=== PATIENT | female | born 1935 | race Caucasian/White ===

== ENCOUNTER 2016-11-13 08:09 | Inpatient (IN) | payer BC, OTHER ==
[2016-10-30 13:16] VITALS: Ht 152.4 cm; Wt 56.8 kg
[2016-11-13] VITALS (10 sets, daily range): BP systolic 130–194; BP diastolic 56–86; PULSE 57–76; TEMP 36.4–36.8; O2SAT 91–100
[~2016-11-13] VITALS: Ht 152.4 cm; Wt 56.8 kg
[~2016-11-13 08:09] MED LIST: ASPI-435 PO; ATROPINE SULFATE 0.1 MG/ML 5ML SYR IV PRN; EpHEDrine SULFATE INJ 50 MG/ML AMP IV PRN; FENTANYL CITRATE INJ 50 MCG/1 ML 2 ML VIAL IV PRN; HYDROmorphone INJ 1 MG/ML SYR IV PRN; IBUP-1451 PO; LACTATED RINGER'S 1000ML 1,000 ML IV SCH; METO25TA56 PO; ONDANSETRON INJ 2 MG/ML 2 ML VIAL IV PRN; PRAV20TA PO
[2016-11-13] MEDS ORDERED: FENTANYL CITRATE INJ 50 MCG/1 ML 2 ML VIAL ONE ×2 (09:44→10:56)
[2016-11-13] MEDS ORDERED: MIDAZOLAM HCL 1 MG/ML 2ML VIAL ONE (09:45)
--- NOTE | 2016-11-13 09:49 | History & Physical Bridge Note ---
H&P Re-Evaluation Bridge Note: I have examined the patient, reviewed the History & Physical and in the interval since the performance of the History & Physical I have noted the following changes of clinical significance: No changes noted
--- NOTE | 2016-11-13 09:49 | History and Physical ---
History & Physical Date Nov 13, 2016. Chief Complaint Back and leg pain History of Present Illness The patient is a 81 year old female with complaints of Additional History Hepatic Disease: No Endocrine Disorder: No Kidney Disease: No Hypertension: Yes Heart Disease: No Bleeding Tendencies: No Infectious Diseases: No Allergies Coded Allergies: No Known Allergies (Unverified , 11/13/16) Home Medications Scheduled Aspirin (Aspirin 81), 1 TAB PO QAM Metoprolol Tartrate (Lopressor) (Lopressor), 25 MG PO BID Pravastatin (Pravachol ), 20 MG PO QAM Scheduled PRN Ibuprofen Tab (Motrin), 800 MG PO BID PRN for Pain Physical Examination Skin: warm/dry, no rash Eyes: normal inspection, EOMI, sclerae normal ENT: normal ENT inspection, pharynx normal Head: normocephalic, atraumatic Neck: supple, no adenopathy, trachea midline Respiratory/Chest: lungs clear, normal breath sounds, no respiratory distress Cardiovascular: regular rate, rhythm, no edema, no murmur Abdomen / GI: normal bowel sounds, non tender Back: normal inspection Extremities: normal inspection, normal range of motion Neurologic/Psych: no motor/sensory deficits, alert, normal reflexes, oriented x 3 Diagnosis Lumbar spinal stenosis with spondylolisthesis Plan of Treatment Lumbar decompression L3 4 L4 5 with fusion
[2016-11-13] MEDS ORDERED: BACITRACIN 50000 UNIT VIAL ONE (10:20)
[2016-11-13] MEDS ORDERED: SODIUM CHLORIDE 0.9% PF 50 ML VIAL ONE (10:20)
[2016-11-13] MEDS ORDERED: BUPIVACAINE/EPINEPHRINE 0.5% MPF 1:200,000 10 ML VIAL ONE ×2 (10:20)
[2016-11-13] MEDS: CEFAZOLIN 1000MG/55 ML D5W IV SCH (10:33)
[2016-11-13] MEDS ORDERED: HYDROmorphone INJ 2 MG/ML SYR/VIAL ONE (10:56)
[2016-11-13] MEDS ORDERED: PROPOFOL IV EMULSION 10 MG/ML 20 ML VIAL IV ONE (12:43)
[2016-11-13] MEDS ORDERED: EpHEDrine SULFATE 50MG/5ML SYR ONE (12:43)
[2016-11-13] MEDS ORDERED: ONDANSETRON INJ 2 MG/ML 2 ML VIAL ONE (12:43)
[2016-11-13] MEDS ORDERED: NEOSTIGMINE METHYLSULFATE 1 MG/ML 10ML VIAL ONE (12:43)
[2016-11-13] MEDS ORDERED: PHENYLEPHRINE 100MCG/ML 5ML SYR ONE (12:43)
[2016-11-13] MEDS ORDERED: GLYCOPYRROLATE INJ 0.2 MG/ML VIAL ONE (12:43)
[2016-11-13] MEDS ORDERED: DEXAMETHASONE SOD INJ 4 MG/ML VIAL ONE (12:43)
[2016-11-13] MEDS ORDERED: ROCURONIUM BROMIDE 10 MG/ML 5 ML VIAL ONE (12:43)
[2016-11-13] MEDS ORDERED: LIDOCAINE HCL 2% 2 ML VIAL (20MG/ML) ONE (12:43)
[2016-11-13] MEDS ORDERED: SODIUM CHLORIDE 0.9% 1000ML 1,000 ML IV SCH (12:44)
[2016-11-13] MEDS ORDERED: DO NOT ADMINISTER PNEUMOCOCCAL VACCINE PRN ×2 (12:45)
[2016-11-13] MEDS ORDERED: PROMETHAZINE HCL INJ 12.5 MG in SODIUM CHLORIDE 0.9% 50ML 50 ML IV PRN (12:45)
[2016-11-13] MEDS ORDERED: FAMOTIDINE 20 MG TAB PO PRN (12:45)
[2016-11-13] MEDS ORDERED: NALOXONE HCL 0.4 MG/1 ML VIAL/CARP IV PRN ×2 (12:45)
[2016-11-13] MEDS ORDERED: LORAZEPAM INJ 0.5 MG in SYRINGE 0.75 ML IV PRN (12:45)
[2016-11-13] MEDS ORDERED: SOD PHOSPHATE/SOD BIPHOSPHATE ENEMA 132 ML BTL PR PRN (12:45)
[2016-11-13] MEDS ORDERED: ACETAMINOPHEN IV 100 ML IV PRN (12:45)
[2016-11-13] MEDS ORDERED: METOCLOPRAMIDE HCL INJ 5 MG/ML 2 ML VIAL IV PRN (12:45)
[2016-11-13] MEDS ORDERED: BISACODYL 10 MG SUPP PR PRN (12:45)
[2016-11-13] MEDS ORDERED: DO NOT ADMINISTER FLU VACCINE PRN ×3 (12:45)
[2016-11-13] MEDS ORDERED: HYDROmorphone HCL 0.5MG/ML 50 ML CASSETTE IV PRN (12:45)
[2016-11-13] MEDS ORDERED: LORAZEPAM 0.5 MG TAB PO PRN (12:45)
[2016-11-13] MEDS ORDERED: ALUMINUM/MAGNESIUM SUSP 30 ML UDC PO PRN (12:45)
[2016-11-13] MEDS ORDERED: ACETAMINOPHEN 500 MG TAB PO PRN (12:45)
[2016-11-13] MEDS ORDERED: MAGNESIUM HYDROXIDE SUSP 30 ML UDC PO PRN (12:45)
[2016-11-13] MEDS ORDERED: hydrOXYzine HCL 25 MG TAB PO PRN (12:45)
[2016-11-13] MEDS ORDERED: FLOSEAL HEMOSTATIC MATRIX 10ML TOP ONE (12:47)
--- NOTE | 2016-11-13 12:47 | DIAGNOSTIC IMAGING REPORT ---
LUMBAR SPINE 2 OR 3 VIEW CLINICAL HISTORY: L3-5 DECOMPRESSION/FUSION/INTERBODY fusion TECHNIQUE: Image intensifier COMPARISON STUDY: None FINDINGS: Image intensifier utilized for a lumbar laminectomy and fusion IMPRESSION: Lumbar laminectomy and fusion The above report was generated using voice recognition software. It may contain grammatical, syntax or spelling errors. Electronically signed by: Anurag Gilliam M.D. 11/13/2016 12:46 PM Dictated Date/Time: 11/13/2016 12:45 PM
--- NOTE | 2016-11-13 12:55 | [facility] Operative Report ---
Operative Report Operative Date Nov 13, 2016. Pre-Operative Diagnosis Lumbar spinal stenosis with spondylolisthesis Post-Operative Diagnosis same as pre-operative Procedure(s) Performed #1 lumbar decompression L2 3 L3 4 4 5. 2 posterior spinal fusion L3 4 for 5. #3 this posterior segmental instrumentation L3 4 L4 5. #4 interbody fusion L4 5. #5 placement peek cage 9 x 22 mm at L4 5. 6 placement of locally harvested morcellized autograft posterior gutters. #7 placement infuse collagen sponge by mask graft in the posterior lateral gutters Nimco bone graft in the interbody space. Surgeon Dr. Pedro Martinez Radiology Scheduler Surgeon(s) Brielle Root PA-C Estimated Blood Loss 125ML Findings Severe spinal stenosis with spondylolisthesis Specimens none per surgeon Description of Procedure He shouldn't was met with preoperatively case discussed all questions are dressed with the patient was taken back to the operative suite and after undergoing successful general intubation placed in a prone position on top of the Avery frame. All bony promises well-padded eyes inspected to ensure no external pressure placed upon them. This point the lumbar spines prepped draped nostril fashion. Sharp dissection with the assistance of Bovie cautery was performed onto an exposing the lamina and transverse processes of L3 L4 L5 bilaterally. Obvious anterolisthesis facet hypertrophy identified. A complete laminectomy of L4 and L3 was performed addressing severe lateral recess as well as foraminal stenosis. We did also perform partial laminectomy of L2 to address medial facetectomies lateral recess stenosis at L2-3. At this complete pedicle screws were placed in L3 L4-L5 bilaterally with the assistance of fluoroscopy into a transforaminal approach on the right a complete discectomy of L4 5 was performed and an plates curetted to subcortical bleeding bone and a 9 x 22 mm peek cage filled with Nimco bone grafting Position. Purposes aleksandra appropriate placed compressed and locked and final position bilaterally. Transverse processes of L3-L4 5 burred to subcortical bleeding bone. Infuse collagen sponge mass Local harvested morcellized autograft was placed and posterior gutters. 15 round JAVY drain inserted. Incision closed with 1 Vicryl fascia 2-0 Vicryl subcutaneous cutaneously 4-0 Monocryl for final skin closure. Please note Brielle Doherty present throughout the entire procedure involved in patient positioning complex portions of the procedure and final skin closure. I attest to the content of the Intraoperative Record and any orders documented therein. Any exceptions are noted below.
[2016-11-13] MEDS ORDERED: HYDROmorphone HCL 0.5MG/ML 50 ML CASSETTE ONE (13:05)
[2016-11-13] MEDS ORDERED: KETOROLAC TROMETHAMINE 30 MG/ML VIAL ONE (13:05)
[2016-11-13] MEDS ORDERED: ESMOLOL HCL 10 MG/ML 10 ML VIAL ONE (13:05)
--- NOTE | 2016-11-13 13:36 | Anesthesiology Progress Note ---
Anesthesia Post Op Note Date & Time Nov 13, 2016 at 13:36 Vital Signs Pain Intensity: 0 Vital Signs Past 12 Hours Date Time Temp Pulse Resp B/P (MAP) Pulse Ox O2 Delivery O2 Flow Rate FiO2 11/13/16 13:27 67 19 11/13/16 13:27 67 19 98 11/13/16 13:26 169/56 11/13/16 13:22 73 11 100 11/13/16 13:22 73 11 11/13/16 13:21 171/62 11/13/16 13:17 72 22 11/13/16 13:17 72 22 100 11/13/16 13:16 73 16 164/62 100 11/13/16 13:16 73 16 11/13/16 13:11 72 17 153/66 100 11/13/16 13:11 74 17 11/13/16 13:06 80 16 11/13/16 13:06 80 16 156/64 100 11/13/16 13:01 82 15 145/63 99 11/13/16 13:01 36.6 82 14 145/63 (94) 99 Mask 10 11/13/16 13:01 81 15 11/13/16 08:48 36.7 59 18 194/86 97 Room Air Notes Mental Status: alert / awake / arousable, participated in evaluation Pt Amnestic to Procedure: Yes Nausea / Vomiting: adequately controlled Pain: adequately controlled Airway Patency, RR, SpO2: stable & adequate BP & HR: stable & adequate Hydration State: stable & adequate Anesthetic Complications: no major complications apparent
[2016-11-13] MEDS: SODIUM CHLORIDE 0.9% 1000ML 1,000 ML IV SCH ×2 (14:51→20:42)
[2016-11-13 17:07] LABS: BASO % 0.1 %; BASO ABS # 0.02 K/uL (0-0.2); COMPLETE YES; EOS % 0.1 %; HEMATOCRIT 35.6 % (37-47); IG% 0.3 %; LYMPH % 6.1 %; LYMPH ABS # 0.92 K/uL (1.2-3.4); MEAN CELL VOLUME 94.9 fL (80-100); MEAN CORPUSCULAR HEMOGLOBIN 31.2 pg (25-34); MEAN CORPUSCULAR HGB CONC 32.9 g/dl (32-36); MEAN PLATELET VOLUME 10.6 fL (7.4-10.4); MONO % 0.7 %; NEUT % 92.7 %; PLATELET COUNT 181 K/uL (130-400); RED BLOOD COUNT 3.75 M/uL (4.2-5.4); WHITE BLOOD COUNT 15.18 K/uL (4.8-10.8)
[2016-11-13 17:26] LABS: BUN/CREATININE RATIO 24.6 (10-20); CALCIUM 8.3 mg/dl (8.5-10.1); CREATININE 0.68 mg/dl (0.60-1.20); MAGNESIUM 1.9 mg/dl (1.8-2.4); POTASSIUM 3.4 mmol/L (3.5-5.1)
[2016-11-13 17:29] LABS: ALB/GLOB RATIO 1.2 (0.9-2)
[2016-11-13] MEDS: CEFAZOLIN IV 1,000 MG in DEXTROSE 5% 50ML 50 ML IV SCH (18:30)
--- NOTE | 2016-11-13 19:12 | INTERNAL MEDICINE CONSULTATION ---
DATE OF CONSULTATION: 11/13/2016 REASON FOR CONSULTATION: Medical co-care. HISTORY OF PRESENT ILLNESS: The patient is an 81-year-old female with a past medical history of degenerative joint disease. The patient complained of lower back pain for a long period of time, was diagnosed with lumbar spinal stenosis with spondylitis, failed conservative management as an outpatient and came for admission to have an elective lumbar decompression L3-L4 and L4-L5 fusion.
--- NOTE | 2016-11-13 19:23 | INTERNAL MEDICINE CONSULTATION ---
DATE OF CONSULTATION: 11/13/2016 CONSULT REQUESTED BY: Dr. Martinez for medical care. HISTORY OF PRESENT ILLNESS: The patient is an 81-year-old female with a past medical history of hypertension and dyslipidemia. The patient had been complaining of lower back pain, diagnosed with lumbar spinal stenosis with spondylolisthesis. Failed outpatient conservative management and presented to the hospital for elective lumbar decompression L3-L5 with fusion. PAST MEDICAL HISTORY: Hypertension, dyslipidemia, spinal stenosis, history of aortic stenosis, status post valvular replacement in 07/2015 with bioprosthetic valve. REVIEW OF SYSTEMS: Denies any headache, double vision, blurry vision. Denies any chest pain or palpitation. Denies any cough, wheezing, shortness of breath. Denies any diarrhea or blood in stool. Denies any burning sensation in the urine or blood. Denies any focal weakness, tingling or numbness. Rest of the review of system is negative. SOCIAL HISTORY: No smoking or drinking. Lives with her daughter and her son-in-law. FAMILY HISTORY: The patient denies any family history of diabetes or heart disease. HOME MEDICATIONS: The patient takes aspirin, metoprolol, pravastatin and ibuprofen p.r.n. for pain. ALLERGIES: No known drug allergy. PHYSICAL EXAMINATION: GENERAL: The patient is average built, not in acute distress. VITAL SIGNS: Temperature 36.5, heart rate is 67, blood pressure 165/67. HEENT: No jaundice, no pallor with mucous membranes. NECK: Supple. HEART: S1, S2 normal. No gallop, rub or murmur. LUNGS: Clear to auscultation bilaterally. Normal chest wall expansion. ABDOMEN: Soft, nontender, nondistended. NEUROLOGIC: Awake, alert, oriented to time, place and person. Moves all extremities. Sensation intact. Cranial nerves II-XII appear to be intact. PSYCHIATRIC: Appropriate thought process and affect. EXTREMITIES: No edema, clubbing or cyanosis. ASSESSMENT: 1. Hypertension. 2. Dyslipidemia. 3. Spinal stenosis, status post lumbar decompression L2-L5, posterior spinal fusion L3, L4 and L5. Please refer to operative report for more details. 4. Aortic stenosis, status post bioprosthetic valve replacement. PLAN: 1. DVT prophylaxis and PT/OT and pain management will be up to primary orthopedic team. 2. Obtain CMP and CBC as baseline for the patient's most recent labs were in September and were within normal limits. 3. Continue IV fluid hydration. 4. Continue supportive care. 5. Pain management. 6. Continue metoprolol and pravastatin. We will continue to follow up the patient, review labs and order. Thank you for giving us the opportunity of sharing in the care of Mrs. Martine Timmons.
[2016-11-13] MEDS: DOCUSATE SODIUM/SENNA 50/8.6MG TAB PO SCH (20:41)
[2016-11-13] MEDS: DEXAMETHASONE INJ 6 MG in SYRINGE 0 ML IV SCH (20:41)
[2016-11-13] MEDS: METOPROLOL TARTRATE 25 MG TAB PO SCH (20:41)
[2016-11-14] VITALS (7 sets, daily range): BP systolic 130–191; BP diastolic 54–69; PULSE 55–70; TEMP 36.4–36.9; O2SAT 92–98
[2016-11-14] MEDS: SODIUM CHLORIDE 0.9% 1000ML 1,000 ML IV SCH (03:32)
[2016-11-14] MEDS: CEFAZOLIN IV 1,000 MG in DEXTROSE 5% 50ML 50 ML IV SCH (03:32)
[2016-11-14] MEDS: DEXAMETHASONE INJ 6 MG in SYRINGE 0 ML IV SCH ×2 (05:28→13:21)
[2016-11-14 05:45] LABS: BASO % 0.1 %; BASO ABS # 0.01 K/uL (0-0.2); COMPLETE YES; HEMATOCRIT 30.8 % (37-47); IG% 0.2 %; LYMPH % 9.2 %; LYMPH ABS # 1.17 K/uL (1.2-3.4); MEAN CELL VOLUME 94.5 fL (80-100); MEAN CORPUSCULAR HEMOGLOBIN 31.6 pg (25-34); MEAN CORPUSCULAR HGB CONC 33.4 g/dl (32-36); MEAN PLATELET VOLUME 10.9 fL (7.4-10.4); MONO % 3.6 %; NEUT % 86.9 %; PLATELET COUNT 186 K/uL (130-400); RED BLOOD COUNT 3.26 M/uL (4.2-5.4); WHITE BLOOD COUNT 12.71 K/uL (4.8-10.8)
[2016-11-14] MEDS ORDERED: DC PCA SCH (06:00)
[2016-11-14] MEDS ORDERED: HYDROmorphone INJ 0.5 MG/0.5 ML SYR IV PRN (06:00)
[2016-11-14] MEDS ORDERED: HYDROmorphone INJ 1 MG/ML SYR IV PRN (06:00)
[2016-11-14] MEDS ORDERED: NURSING DECISION MEDICATION ORDER SCH (06:30)
[2016-11-14 06:38] LABS: BUN/CREATININE RATIO 21.6 (10-20); CALCIUM 7.9 mg/dl (8.5-10.1); CREATININE 0.72 mg/dl (0.60-1.20); POTASSIUM 4.5 mmol/L (3.5-5.1)
[2016-11-14] MEDS: PRAVASTATIN SOD 20 MG TAB PO SCH (08:07)
[2016-11-14] MEDS: ASPIRIN 81 MG ECTAB PO SCH (08:08)
[2016-11-14] MEDS: METOPROLOL TARTRATE 25 MG TAB PO SCH ×2 (08:08→21:04)
[2016-11-14] MEDS ORDERED: RXC5 PO (09:00)
--- NOTE | 2016-11-14 09:00 | Discharge Instructions ---
Discharge Instructions Date of Service Nov 14, 2016. Admission Reason for Admission: Spinal Stenosis Discharge Discharge Diagnosis / Problem: lumbar stenosis Discharge Goals Goal(s): Improve function Activity Recommendations Activity Limitations: per Instructions/Follow-up section . Instructions / Follow-Up Instructions / Follow-Up ACTIVITY RECOMMENDATIONS: SELF CARE INSTRUCTIONS AFTER THORACIC/LUMBAR FUSIONS 1. You may walk to your tolerance. It is good exercise for your legs and back. Expect some back and intermittent leg aches and pains. 2. You may perform "counter-top" level activities (make a sandwich, edvin with a project, etc.). 3. No bending or lifting of more than 10 pounds or back twisting of any nature (roll like a log when turning in bed). 4. You may ride in a car for 20-30 minutes at a time. No driving until after your first visit with your doctor. 5. Frequent changes of position and restricting sitting to 30 minutes at a time will help limit the amount of back spasms and stiffness you may experience. 6. You may discontinue the use of ambulatory aids (cane, crutches, etc.) once your strength and confidence allow. 7. You may wood floor refinisher the shower and let water strike your incision when you arrive home at least once daily. Do not take a tub bath, sit in a hot tub or go into a swimming pool until after your first recheck in the office. SPECIAL CARE INSTRUCTIONS: VERY IMPORTANT TO READ AND REVIEW A. Your surgical incision has been closed with a cosmetic suture under the skin that will dissolve in about 6 weeks. In 14 days, you can use a pair of clean scissors and cut the suture that is left outside of the skin at the ends of your incision. 1. The small skin tapes can be removed 7 days after surgery if they have not fallen off by that point. 2. You may keep the wound open to air as much as possible to promote healing after post-op day number 5 unless told otherwise by your doctor. 3. If you think the wound looks like it is becoming infected (redness or worsening drainage) and/or you are experiencing fever, chill or worsening back pain and muscle spasms, contact the office so that we may evaluate you as soon as possible. B. Complications are uncommon, but please contact us if you have any signs or symptoms of: 1. wound infection (fever higher than 102.5 degrees F, redness, separation of wound, drainage, or increasing pain from the incision) 2. blood clots in legs (pain, swelling, redness and warmth in legs) 3. urinary tract infection (fever higher than 102.5 degrees F, burning upon urination or increased frequency of urination) 4. nerve problems (inability to walk on your toes or heels, numbness, loss of bowel or bladder control) 5. any other symptoms that concern you C. Please call the office at if you have any concerns or questions about your operation or recovery. D. No smoking! Smoking drastically decreases the chance of a solid fusion. E. Do not take any anti-inflammatory medications (Indocin, Advil, Motrin, Aspirin, Naprosyn, etc.) as these may inhibit the chance of a solid fusion. Tylenol is okay to take for pain. MANAGING PAIN AFTER SPINAL SURGERY 1. Narcotic medication is intended for short-term use and will be provided for surgical pain. Surgical pain usually lasts for a period of 4-6 weeks. Narcotic medication includes Percocet, Vicodin, Darvocet, Tylenol #3 or Lortab. 2. Longer-term pain is more appropriately treated with non-narcotic medication such as Tylenol ES. 3. Muscle spasm is not appropriately treated with narcotics. Muscle relaxers such as Soma, Flexeril or Skelaxin can be used along with Tylenol ES. 4. Remember that we all live with some "aches and pains". This is not unusual or uncommon after an injury or as we get older. a. Back pain is expected and may include muscle spasms for 4 to 6 weeks after surgery. The pain should gradually improve. If the pain worsens for no apparent reason, please contact the office. b. Intermittent leg pain may also be experienced and should not be concerned about unless it worsens for no apparent reason. If so, please contact the office. 5. We will provide appropriate medication within the normal guidelines of their prescribed use. We will also be very cautious and aware of potential abuse and extended duration of patients' medication needs. a. Pain medications are for your comfort and to assist with sleep and rest so that the tissue can heal. They are not provided in order to return to normal activity and should not be used through the day. To do so or worsening pain at night can result from ongoing tissue damage and development of tolerance to the prescribed medicine. 6. Please allow 2-3 days to process refills. Prescriptions will not be mailed but must be picked up at the office. FOLLOW UP VISIT: Keep your scheduled follow-up appointment. Any questions, please call the office at . Current Hospital Diet Patient's current hospital diet: Regular Diet Discharge Diet Recommended Diet: Regular Diet Procedures Procedures Performed: #1 lumbar decompression L2 3 L3 4 4 5. 2 posterior spinal fusion L3 4 for 5. #3 this posterior segmental instrumentation L3 4 L4 5. #4 interbody fusion L4 5. #5 placement peek cage 9 x 22 mm at L4 5. 6 placement of locally harvested morcellized autograft posterior gutters. #7 placement infuse collagen sponge by mask graft in the posterior lateral gutters Nimco bone graft in the interbody space. Pending Studies Studies pending at discharge: no Medical Emergencies . Who to Call and When: Medical Emergencies: If at any time you feel your situation is an emergency, please call 911 immediately. . Non-Emergent Contact Non-Emergency issues call your: Primary Care Provider . "Provider Documentation" section prepared by Pedro Martinez. . VTE Core Measure Inpt VTE Proph given/why not?: Hector Batres, MICHELL's
--- NOTE | 2016-11-14 10:16 | Anesthesiology Progress Note ---
Anesthesia Post Op Note Date & Time Nov 14, 2016 at 10:15 Vital Signs Pain Intensity: 0.0 Vital Signs Past 12 Hours Date Time Temp Pulse Resp B/P (MAP) Pulse Ox O2 Delivery O2 Flow Rate FiO2 11/14/16 07:28 36.9 59 16 138/68 (91) 92 11/14/16 07:10 Room Air 11/14/16 03:16 36.4 64 14 145/68 (93) 92 Room Air 11/13/16 22:53 36.5 57 14 145/62 (89) 95 Room Air Notes Mental Status: alert / awake / arousable, participated in evaluation Pt Amnestic to Procedure: Yes Nausea / Vomiting: adequately controlled Pain: adequately controlled Airway Patency, RR, SpO2: stable & adequate BP & HR: stable & adequate Hydration State: stable & adequate Anesthetic Complications: no major complications apparent
[2016-11-14] MEDS: OXYCODONE HCL IR 5 MG TAB (IMMEDIATE RELEASE) PO PRN ×3 (10:30→22:13)
--- NOTE | 2016-11-14 12:55 | Hospitalist Progress Note ---
Hospitalist Progress Note Date of Service Nov 14, 2016. Subjective Pt evaluation today including: conversation w/ patient, physical exam, chart review, lab review, review of inpatient medication list Pain: Well controlled PO Intake: Tolerating PO diet Voiding: buckner catheter in place Patient reports feeling well. She denies any back pain. She states she is eating well without any difficulties. Buckner catheter is still in place, but the patient states that this is supposed to be removed today. She states that she is passing gas but has not had a bowel movement yet. The patient denies fevers, chills, sweats, chest pain, palpitations, claudication, cough, wheezing , shortness of breath, nausea, vomiting, abdominal pain, dysuria, hematuria, urinary retention, paralysis, weakness, numbness and tingling. Additional Comments: See HPI for pertinent positives and negatives. All other systems reviewed and negative. Objective Vital Signs Date Time Temp Pulse Resp B/P (MAP) Pulse Ox O2 Delivery O2 Flow Rate FiO2 11/14/16 10:51 36.7 56 16 151/54 (86) 95 Room Air 11/14/16 07:28 36.9 59 16 138/68 (91) 92 11/14/16 07:10 Room Air 11/14/16 03:16 36.4 64 14 145/68 (93) 92 Room Air 11/13/16 22:53 36.5 57 14 145/62 (89) 95 Room Air 11/13/16 20:40 69 135/64 (87) 11/13/16 19:26 36.7 76 18 130/62 (84) 92 Room Air 11/13/16 19:00 Room Air 11/13/16 17:35 36.8 64 17 155/56 (89) 91 Room Air 11/13/16 16:34 36.8 69 17 157/68 (97) 99 Room Air 11/13/16 15:37 36.8 64 18 166/67 (100) 99 Nasal Cannula 4.0 11/13/16 15:03 36.8 65 18 162/61 (94) 98 Nasal Cannula 4.0 11/13/16 14:32 62 16 167/65 (99) 100 Nasal Cannula 4.0 11/13/16 14:00 100 Nasal Cannula 4.0 11/13/16 14:00 100 Nasal Cannula 4.0 11/13/16 14:00 36.4 64 16 166/72 (103) 100 Nasal Cannula 4.0 11/13/16 13:33 36.5 63 16 165/67 100 Nasal Cannula 4 11/13/16 13:27 67 19 11/13/16 13:27 67 19 98 11/13/16 13:26 169/56 11/13/16 13:22 73 11 100 11/13/16 13:22 73 11 11/13/16 13:21 171/62 11/13/16 13:17 72 22 11/13/16 13:17 72 22 100 11/13/16 13:16 73 16 164/62 100 11/13/16 13:16 73 16 11/13/16 13:11 72 17 153/66 100 11/13/16 13:11 74 17 11/13/16 13:06 80 16 11/13/16 13:06 80 16 156/64 100 11/13/16 13:01 82 15 145/63 99 11/13/16 13:01 36.6 82 14 145/63 (94) 99 Mask 10 11/13/16 13:01 81 15 Physical Exam Notes: General appearance: Well-developed, well-nourished, no apparent distress Head: Normocephalic, atraumatic Eyes: Normal inspection, PERRL, EOMI ENT: Normal ENT inspection, hearing grossly normal, pharynx normal Neck: Supple, no JVD, trachea midline Respiratory/Chest: Lungs clear to auscultation, normal breath sounds, no respiratory distress Cardiovascular: +Systolic murmur. Regular rate & rhythm, no gallop Abdomen/GI: Normal bowel sounds, non-tender, soft Extremities/Musculoskeletal: Normal inspection, no calf tenderness, no pedal edema Neurological/Psych: Alert, normal mood/affect, oriented x 3 Skin: Normal color, warm/dry, no rash Laboratory Results Last 24 Hours Test 11/13/16 17:00 11/14/16 05:16 White Blood Count 15.18 K/uL 12.71 K/uL Red Blood Count 3.75 M/uL 3.26 M/uL Hemoglobin 11.7 g/dL 10.3 g/dL Hematocrit 35.6 % 30.8 % Mean Corpuscular Volume 94.9 fL 94.5 fL Mean Corpuscular Hemoglobin 31.2 pg 31.6 pg Mean Corpuscular Hemoglobin Concent 32.9 g/dl 33.4 g/dl Platelet Count 181 K/uL 186 K/uL Mean Platelet Volume 10.6 fL 10.9 fL Neutrophils (%) (Auto) 92.7 % 86.9 % Lymphocytes (%) (Auto) 6.1 % 9.2 % Monocytes (%) (Auto) 0.7 % 3.6 % Eosinophils (%) (Auto) 0.1 % 0.0 % Basophils (%) (Auto) 0.1 % 0.1 % Neutrophils # (Auto) 14.08 K/uL 11.05 K/uL Lymphocytes # (Auto) 0.92 K/uL 1.17 K/uL Monocytes # (Auto) 0.11 K/uL 0.46 K/uL Eosinophils # (Auto) 0.01 K/uL 0.00 K/uL Basophils # (Auto) 0.02 K/uL 0.01 K/uL RDW Standard Deviation 51.1 fL 50.1 fL RDW Coefficient of Variation 14.7 % 14.6 % Immature Granulocyte % (Auto) 0.3 % 0.2 % Immature Granulocyte # (Auto) 0.04 K/uL 0.02 K/uL Sodium Level 144 mmol/L 144 mmol/L Potassium Level 3.4 mmol/L 4.5 mmol/L Chloride Level 112 mmol/L 114 mmol/L Carbon Dioxide Level 26 mmol/L 25 mmol/L Anion Gap 6.0 mmol/L 5.0 mmol/L Blood Urea Nitrogen 17 mg/dl 16 mg/dl Creatinine 0.68 mg/dl 0.72 mg/dl Est Creatinine Clear Calc Drug Dose 50.4 ml/min 47.6 ml/min Estimated GFR () 94.4 90.4 Estimated GFR (Non- 81.5 78.0 BUN/Creatinine Ratio 24.6 21.6 Random Glucose 116 mg/dl 147 mg/dl Calcium Level 8.3 mg/dl 7.9 mg/dl Magnesium Level 1.9 mg/dl Total Bilirubin 0.4 mg/dl Aspartate Amino Transf (AST/SGOT) 29 U/L Alanine Aminotransferase (ALT/SGPT) 30 U/L Alkaline Phosphatase 68 U/L Total Protein 6.2 gm/dl Albumin 3.4 gm/dl Globulin 2.8 gm/dl Albumin/Globulin Ratio 1.2 Assessment and Plan 81 y/o female with a history of HTN, HLD and h/o aortic stenosis s/p aortic bioprosthetic valve replacement in July 2015 who presents s/p lumbar decompression and fusion with Dr. Martinez on 11/13 for medical management. -Pain management, DVT prophylaxis, and PT/OT as per primary team -POD #1 -Leukocytosis improving -Hemoglobin stable HTN--stable -Continue Lopressor 25 mg PO BID with hold parameters. Hold if HR less than 60 or SBP less than 100 -May cover with hydralazine 10 mg IV q6h prn SBP >180 HLD -Continue pravastatin 20 mg PO qd H/o aortic stenosis s/p aortic bioprosthetic valve replacement July 2015 -Continue ASA 81 mg PO qd Pt. is stable from a medical standpoint, we will sign off. Clear for discharge as per primary team. 3. Continue IV fluid hydration. 4. Continue supportive care. 5. Pain management. 6. Continue metoprolol and pravastatin.
[2016-11-14] MEDS ORDERED: HydrALAZINE HCL 20 MG/ML VIAL IV. PRN (13:00)
--- NOTE | 2016-11-14 15:01 | Progress Note ---
Progress Note Date of Service Nov 14, 2016. Progress Note Patient doing well. Has improvement of her leg pain. Back pain is well- controlled. Vital signs are stable. Neurologically she demonstrates good strength testing bilateral x-rays. Assessment status post lumbar decompression fusion. Planned this time we'll initiate physical therapy advance her bowel or joint anticipate possible DC home in the next few days.
[2016-11-14] MEDS: DOCUSATE SODIUM/SENNA 50/8.6MG TAB PO SCH (21:04)
[2016-11-15] MEDS: POLYETHYLENE (MIRALAX) 17 GM PACK PO SCH ×4 (05:38→23:44)
[2016-11-15 07:15] VITALS: BP 130/57; PULSE 63; TEMP 36.5; O2SAT 94
[2016-11-15] MEDS: PRAVASTATIN SOD 20 MG TAB PO SCH (08:27)
[2016-11-15] MEDS: ASPIRIN 81 MG ECTAB PO SCH (08:27)
[2016-11-15] MEDS: METOPROLOL TARTRATE 25 MG TAB PO SCH ×2 (09:12→21:42)
[2016-11-15 12:58] VITALS: BP 164/72; TEMP 36.3; O2SAT 93
--- NOTE | 2016-11-15 13:14 | Progress Note ---
Progress Note Date of Service Nov 15, 2016. Progress Note Patient noted a headache last evening this morning. This is combined with some posterior neck pain. Leg pain markedly improved. Leg halls well. I'll signs are stable JAVY drain still squatted significant. Logically she has good strength testing is comfortable at this time lying in bed. Assessment status post lumbar depression fusion replant this time unconcerned she developed a CSF leak. We will discontinue the drain maintain bed rest 24 hours and reassess her. I did explain the patient that if the leak fails to seal we made require an exploration of the incision. She understands agrees.
[2016-11-15 15:17] VITALS: BP 138/62; PULSE 65; TEMP 37; O2SAT 94
[2016-11-15 19:39] VITALS: BP 156/71; PULSE 72; O2SAT 96
[2016-11-15 21:41] VITALS: BP 152/67; PULSE 73; O2SAT 92
[2016-11-15] MEDS: DOCUSATE SODIUM/SENNA 50/8.6MG TAB PO SCH (21:43)
[2016-11-15 22:45] VITALS: BP 146/72; PULSE 69; TEMP 36.4; O2SAT 91
[2016-11-15] MEDS: OXYCODONE HCL IR 5 MG TAB (IMMEDIATE RELEASE) PO PRN (23:45)
[2016-11-16] VITALS (7 sets, daily range): BP systolic 139–192; BP diastolic 61–89; PULSE 70–80; TEMP 36.8–37.7; O2SAT 91–94
[2016-11-16] MEDS: POLYETHYLENE (MIRALAX) 17 GM PACK PO SCH ×3 (05:38→18:00)
[2016-11-16] MEDS: OXYCODONE HCL IR 5 MG TAB (IMMEDIATE RELEASE) PO PRN ×2 (07:51→18:42)
[2016-11-16] MEDS: PRAVASTATIN SOD 20 MG TAB PO SCH (07:52)
[2016-11-16] MEDS: METOPROLOL TARTRATE 25 MG TAB PO SCH ×2 (07:52→20:54)
[2016-11-16] MEDS: ASPIRIN 81 MG ECTAB PO SCH (10:31)
--- NOTE | 2016-11-16 17:22 | Progress Note ---
Progress Note Date of Service Nov 16, 2016. Progress Note Patient's pain is well-controlled. She denies any leg pain. Denies any nausea vomiting or headaches. She is having positive flatus but no bowel movement as of yet. The remaining without difficulty. Vital signs are stable. On exam she has good strength testing appears comfortable. Assessment status post lumbar decompression fusion. Plan at this time we'll reassess her in the a.m. at which point hopefully begin transitions from bed to chair. If she progresses nicely Saturday we will encourage and increase activity on Saturday. Stands and agrees.
[2016-11-16] MEDS ORDERED: NURSING DECISION MEDICATION ORDER SCH (18:45)
[2016-11-16] MEDS: DOCUSATE SODIUM/SENNA 50/8.6MG TAB PO SCH (20:54)
[2016-11-17 00:11] VITALS: BP 127/61; PULSE 78; TEMP 37.4; O2SAT 91
[2016-11-17] MEDS: ONDANSETRON INJ 2 MG/ML 2 ML VIAL IV PRN ×2 (02:32→13:09)
[2016-11-17] MEDS: OXYCODONE HCL IR 5 MG TAB (IMMEDIATE RELEASE) PO PRN ×2 (02:56→20:33)
[2016-11-17 08:00] VITALS: BP 147/67; PULSE 74; TEMP 37.4; O2SAT 92
[2016-11-17] MEDS: ASPIRIN 81 MG ECTAB PO SCH (08:51)
[2016-11-17] MEDS: METOPROLOL TARTRATE 25 MG TAB PO SCH ×2 (08:51→20:34)
[2016-11-17] MEDS: PRAVASTATIN SOD 20 MG TAB PO SCH (08:51)
--- NOTE | 2016-11-17 09:53 | Progress Note ---
Progress Note Date of Service Nov 17, 2016. Progress Note Patient's feeling very good today. Denies any headaches. Bowels working well. On physical exam vital signs are stable she has good strength testing. Assessment status post lumbar depression fusion replant this time we will initiate bed to chair activities today. Again if she tolerates this today we will initiate more formalized physical therapy tomorrow.
[2016-11-17 15:08] VITALS: BP 114/64; PULSE 68; TEMP 37.1; O2SAT 94
[2016-11-17] MEDS: DOCUSATE SODIUM/SENNA 50/8.6MG TAB PO SCH (20:33)
[2016-11-17 23:33] VITALS: BP 132/54; PULSE 60; TEMP 37.1; O2SAT 94
[2016-11-18 06:59] VITALS: BP 125/61; PULSE 67; TEMP 37.1; O2SAT 92
[2016-11-18] MEDS: PRAVASTATIN SOD 20 MG TAB PO SCH (08:58)
[2016-11-18] MEDS: ASPIRIN 81 MG ECTAB PO SCH (08:59)
[2016-11-18] MEDS: METOPROLOL TARTRATE 25 MG TAB PO SCH (08:59)
--- NOTE | 2016-11-18 09:14 | Progress Note ---
Progress Note Date of Service Nov 18, 2016. Progress Note Patient is improving nicely. Denies any headache nausea or vomiting. Leg pain improved. Exam she is good strength testing is stable bed quite comfortably. Assessment status post lumbar decompression fusion. Planned this time we'll initiate physical therapy today assess her progress tomorrow hopefully home Saturday.
[2016-11-18 11:53] VITALS: BP 125/61; PULSE 67; TEMP 37.1; O2SAT 92
[2016-11-18] MEDS: OXYCODONE HCL IR 5 MG TAB (IMMEDIATE RELEASE) PO PRN (12:35)
--- NOTE | 2016-11-19 11:31 | Discharge Summary ---
Orthopedic Discharge Summary Admission Date/Reason Nov 13, 2016 at 10:30 Spinal Stenosis. Discharge Date/Disposition Nov 18, 2016 Home Diagnosis Principal Diagnosis: Lumbar spinal stenosis Admission Physical Exam As per Admitting History & Physical. Hospital Course Patient underwent lumbar depression fusion tolerated this well and taken to the orthopedic floor postoperatively postoperatively day 2 she developed what evidence of a CSF leak. The drain was removed. She's a bedrest 48 hours. Then she then initiate physical therapy tolerated this well without headaches or leg pain. Substernally she was discharged home discharge orders and instructions found chart for further review. Discharge Instructions Please refer to the electronic Patient Visit Report (Discharge Instructions) for additional information.
== END 2016-11-18 13:02 | disposition home or self-care (01) | DRG 460 ==
LOC: C.ACU 08:09 → C.3E 10:30 → ENRESERV 13:32
PROVIDERS: ADMIT Orthopaedic Surgery Orthopaedic Surgery of the Spine; ATTEND Orthopaedic Surgery Orthopaedic Surgery of the Spine
PROC: 0SG10J1 Fusion of 2 or more Lumbar Vertebral Joints with Synthetic Substitute, Posterior Approach, Posterior Column, Open Approach (ICD-10-PCS; principal; 2016-11-13 10:15)
PROC: 3E0U0GB Introduction of Recombinant Bone Morphogenetic Protein into Joints, Open Approach (ICD-10-PCS; principal; 2016-11-13 10:15)
DX: M48.06 Spinal stenosis, lumbar region (principal)